=== PATIENT | female | born 1960 | race Caucasian/White ===

== ENCOUNTER 2019-02-03 09:26 | Inpatient (IN) | payer OTHER ==
[~2019-02-03] VITALS: Ht 167.6 cm; Wt 52.1 kg
[~2019-02-03 09:26] MED LIST: ASPI81EC PO; ATOR80 PO; DIPH50 PO; DULO30 PO; INSLI100I SC; INSULANI; INSULANI SC; LEVSOD150; LEVSOD150 PO; LOSA50 PO; METO5A; METO5A PO; MIRT15 PO; RANI150 PO; SERT100; ZOLP10 PO
[2019-02-03 09:45] LABS: Calcium, Ionized (POC) 1.32 mmol/L (1.10-1.46); Chloride (POC) 92 mmol/L (98-108); Creatinine (POC) 0.8 mg/dL (0.6-1.0); Glucose (ISTAT POC) >700 mg/dL (70-99); Hemoglobin (POC) 10.9 g/dL (12.0-16.0); Sodium (POC) 128 mmol/L (135-148); Total CO2 (POC) 11 mmol/L (21-32)
[2019-02-03 09:54] LABS: BASOPHILS ABSOLUTE AUTO 0.06 K/mm3 (0.00-0.23); BASOPHILS PERCENT AUTO 0 % (0-2); EOSINOPHILS ABSOLUTE AUTO 0.01 K/mm3 (0.00-0.68); EOSINOPHILS PERCENT AUTO 0 % (0-6); Hematocrit 32.8 % (33.0-51.0); IMMATURE GRAN ABSOLUTE AUTO 0.68 K/mm3 (0.00-0.10); IMMATURE GRAN PERCENT AUTO 4 % (0-1); LYMPHOCYTES ABSOLUTE AUTO 3.75 K/mm3 (0.84-5.20); LYMPHOCYTES PERCENT AUTO 20 % (21-46); MONOCYTES ABSOLUTE AUTO 0.58 K/mm3 (0.16-1.47); MONOCYTES PERCENT AUTO 3 % (4-13); Mean Corpuscular HGB 32.9 pg (26.0-34.0); Mean Corpuscular HGB Conc 30.5 g/dL (31.5-36.5); Mean Corpuscular Volume 108 fL (80-100); Mean Platelet Volume 10.1 fL (9.1-12.4); NEUTROPHILS PERCENT AUTO 72 % (41-73); NRBC ABSOLUTE 0.03 K/mm3 (0.00-0.02); NRBC Auto 0.2 /100 WBC (0.0-0.2); Platelet Count 240 K/mm3 (150-400); RDW Standard Deviation 51.8 fL (35.1-46.3); Red Blood Cell Count 3.04 M/mm3 (3.80-5.20); White Blood Cell Count 18.38 K/mm3 (4.00-11.30)
[2019-02-03 10:01] LABS: PO2 Arterial 209 mmHg (80-100); pH Blood Arterial 6.91 (7.35-7.45)
[2019-02-03 10:36] LABS: Albumin, Blood 3.4 g/dL (3.4-5.0); Albumin/Globulin Ratio 1.1 (0.8-1.8); Bilirubin, Total 0.4 mg/dL (0.1-1.0); Bun/Creatinine Ratio 25.1 (12.0-20.0); Calcium, Blood 10.5 mg/dL (8.5-10.1); Creatinine, Blood 2.83 mg/dL (0.40-1.00); Potassium, Blood 5.2 mmol/L (3.5-5.5); Total Protein, Blood 6.4 g/dL (6.4-8.2); Troponin I 0.552 ng/mL (0.000-0.040)
[2019-02-03 10:51] LABS: Beta-hydroxybutyrate 113.8 mg/dL (0.2-2.8)
--- NOTE | 2019-02-03 12:25 | NUR ---
ARRIVAL TO ICU PT. ARRIVES FROM CT AT 1205. PT INTUBATED WITH 6.5 ETT AND 22 AT THE TEETH. AC 24,TV 300, PEEP 10, 100%. PT NOT ON SEDATION UPON ARRIVAL. PT NON RESPONSIVE. PUPILS REACTIVE BUT SLOW. PT. CURRENTLY ON LEVOPHED GTT INFUSING THROUGH IO IV TO RIGHT REMY AT 20MCG/KG/MIN. INSULIN GTT AT 4.5 UNITS/HR. PT HAS OG IN PLACE WITH DARK BROWN SECRETIONS. PLACED TO LIS. PANDYA IN PLACE, TEMP PROBE REPORTS 91.0. WARM BLANKETS PROVIDE. BILAT WRIST RESTRAINTS PLACE. LAB AT BEDSIDE TO DRAW. DR. RAY AT BESIDE
--- NOTE | 2019-02-03 12:50 | NUR ---
DR. RAY AT [facility] FOR CENTRAL LINE PLACEMENT PER. ORDER ADDITIONAL LITER BOLUS STARTE AN INSULIN TITRATED UP TO 7UNITS/HR. VSS AT THIS TIME.
[2019-02-03 13:07] LABS: Bun/Creatinine Ratio 26.9 (12.0-20.0); Creatinine, Blood 2.42 mg/dL (0.40-1.00); Potassium, Blood 5.9 mmol/L (3.5-5.5)
[2019-02-03 13:08] LABS: Glucose, Blood 747 mg/dL (70-99)
[2019-02-03 13:09] LABS: Calcium, Blood 7.6 mg/dL (8.5-10.1)
--- NOTE | 2019-02-03 13:25 | NUR ---
VENT SETTINGS AC 24, TV 400, 70%, PEEP8
[2019-02-03 13:35] LABS: PCO2 Arterial 22.2 mmHg (35-45); PO2 Arterial 231 mmHg (80-100); pH Blood Arterial 7.06 (7.35-7.45)
--- NOTE | 2019-02-03 13:35 | NUR ---
CENTRAL LINE VERIFIED VIA XRAY ETT TO BE ADVANCED PER DR. TRINIDAD. RT NOTIFIE. SAP HANA DEVELOPER AT BEDSIDE
[2019-02-03] MEDS ORDERED: VENL150ER PO (13:57)
--- NOTE | 2019-02-03 13:58 | NUR ---
Echocardiogram completed.
[2019-02-03] MEDS ORDERED: ZOLP5 PO (13:59)
[2019-02-03] MEDS ORDERED: CARV6.25 PO (14:00)
--- NOTE | 2019-02-03 14:09 | NUR ---
BEARHUGGER PLACED FOR HYPOTHERMIA
[2019-02-03 14:10] LABS: Ethanol (Alcohol), Blood, Med <3 mg/dL
[2019-02-03 14:14] LABS: Glucose, Blood 700 mg/dL (70-99)
--- NOTE | 2019-02-03 14:24 | NUR ---
REINTUBATION 20MG ROCURONIUM AND 50MCG OF FENTANYL PULLED PER DR. ORDER. ADMIN AT 1430. PT REINTUBATED WITH 7.5 ETT; 24 AT THE LIP. POSITIVE COLOR CHANGE AND BILAT EQUAL BREATH SOUNDS WITH REINTUBATION. CHEST XRAY ORDERED FOR VERIFICATION
--- NOTE | 2019-02-03 14:37 | NUR ---
Initial Visit: Palliative Care Consult for Advance Care Planning and End of Life. Spoke with Dr Mckinnon and she reports the Pt's prognosis is poor and family would benefit visit from Palliative Care. Pt is resting in bed and is unresponsive and intubated. Met with family outside of room and engaged in therapeutic conversation. Pt's and son present. Answered questions about prognosis and offered emotional support. Listened as family expressed concerns. Offered book "Hard Choices for Bibb People" and accepted. Family report no other concerns at this time. Family report Pt would appreciate a elevator worker visit. No other concerns reported at this time. Plan: Will place Housekeeper/Laundry Assistant consult and will reamin available for theapeutic visits and symptom managment.
--- NOTE | 2019-02-03 15:27 | NUR ---
Present in ED when pt arrived. Met with Spouse, Brent, in consult room. He was rather withdrawn and guarded. He tells me they have been and , and remarried. It is a complicated relationship. Brent states Francesca has been hospitalized several times for DKA. "But things have never been this bad." This afternoon, I met with family at bedside in ICU. They are tearful and said very little. They allowed me to pray at bedside, but they did not participate. I suspect they are in emotional shock. I will remain available.
[2019-02-03 16:17] LABS: Base Excess Venous -20.2 mmol/L; Bicarbonate Venous 10.6 mmol/L (24.0-30.0); PCO2 Venous 24.3 mmHg (38-42); PO2 Venous 94.5 mmHg (38-42)
[2019-02-03 16:18] LABS: pH Blood Venous 7.15 (7.34-7.37)
--- NOTE | 2019-02-03 16:30 | NUR ---
LEVOPHED TITRATION LEVOPHED TITRATED DOWN; HOWEVER HR NOW IN THE 120S AND BP ELEVATED. PROPOFOL STARTED AT THIS TIME AT 25MCG/KG/MIN (7.7 ML/HR). AFTER STARTING PROPOFOL PT BECAME QUICKLY HYPOTENSIVE. PROPOFOL PLACED ON STAND BY AND LEVOPHED TITRATED BACK UP WITH BP RETAKING Q2 MIN. DR. CORY WOLFE.
[2019-02-03 16:47] LABS: Glucose, Blood 703 mg/dL (70-99)
[2019-02-03 16:51] LABS: U Amphetamine Screen Not Detected; U Barbituate Screen DETECTED; U Benzodiazapine Screen Not Detected; U Buprenorphine Screen Not Detected; U Cannabinoids Screen Not Detected; U Cocaine Screen Not Detected; U Methadone Screen Not Detected; U Methamphetamine Screen Not Detected; U Opiates Screen Not Detected; U Oxycodone Screen Not Detected; U Phencyclidine Screen Not Detected; U Propoxyphene Screen Not Detected
--- NOTE | 2019-02-03 17:22 | NUR ---
CALL TO DR. RAY REGARDING SUSTAINED HYPOTENSION LEVOPHED CURRENTLY AT 25MCG/KG/MIN, VASOPRESSIN INFUSING AT 0.04U/HR. PT CONTINUES WITH SYSTOLIC IN THE 50S. MANUAL BP DONE TO VERIFY. PER DR. RAY GIVE ADDITIONAL 1L BOLUS AT THIS TIME. FAMILY REMAINS AT BEDSIDE AND IS UPDATED ON CONDITION
[2019-02-03 17:24] LABS: Bun/Creatinine Ratio 27.1 (12.0-20.0); Calcium, Blood 7.2 mg/dL (8.5-10.1); Creatinine, Blood 2.4 mg/dL (0.40-1.00); Potassium, Blood 4.4 mmol/L (3.5-5.5)
[2019-02-03 18:14] LABS: Magnesium, Blood 1.8 mg/dL (1.6-2.4)
[2019-02-03 18:17] LABS: Albumin, Blood 2.4 g/dL (3.4-5.0); Bilirubin, Total 0.4 mg/dL (0.1-1.0); Calcium, Blood 6.9 mg/dL (8.5-10.1); Creatinine, Blood 2.42 mg/dL (0.40-1.00); Globulin, Blood 2.3 g/dL (2.2-4.0); Phosphorus, Blood 2.3 mg/dL (2.5-4.9); Potassium, Blood 4.3 mmol/L (3.5-5.5); Total Protein, Blood 4.7 g/dL (6.4-8.2)
[2019-02-03 18:18] LABS: Glucose, Blood 682 mg/dL (70-99)
[2019-02-03 18:41] LABS: Source, Urine Catheter
--- NOTE | 2019-02-03 18:41 | NUR ---
DOUBLE STRENGTH LEVOPHED STARTED TITRATED UP TO 20MCG/KG/MIN AT THIS TIME WITH AN ADDITIONAL 1L FLUID BOLUS. THIS IS 7L NS TOTAL SINCE ARRIVAL TO THE HOSPTIAL. SPOKE WITH DR. JASSO FOR CONSULT ON PT.
[2019-02-03 18:44] LABS: Bilirubin, Urine Neg (Neg); Blood, Urine 5+ (Neg); Glucose Qualitative, Urine 4+ (Neg); Ketones, Urine 3+ (Neg); Leukocyte Esterase, Urine Neg (Neg); Nitrite, Urine Neg (Neg); Protein, Urine 3+ (Neg); Urobilinogen, Urine NORM (Normal)
[2019-02-03 18:49] LABS: Appearance, Urine Hazy (Clear); Color, Urine Yellow (P-Yellow)
--- NOTE | 2019-02-03 18:49 | NUR ---
SHIFT SUMMARY PT. REMAINS INTUBATED WITH NO SEDATION. CURRENT VENT SETTINGS OF AC 24, TV 400, 40%, PEEP8. PT. REMAINS HYPOTENSIVE WITH AN ADDITIONAL LITER BOLUS (7TH) INFUSING AT THIS TIME, ALONG WITH DOUBLE STRENGTH LEVOPHED AT 20MCG/KG/MIN, VASOPRESSIN 0.04UNITS/MIN. ORDERS FOR NEOSYNEPHRINE IF NEEDED FOR BP AFTER THIS FLUID BOLUS. FAMILY REMAINS AT BEDSIDE. PT. WAS USING BEARHUGGER TODAY FOR HYPOTHERMIA HOWEVER WAS REMOVED WHEN TEMP WAS 97.1 AND TEMP IS NOW 98.[address]YA TEMP PROBE[address] JASSO IN TO SEE PT. REPORT TO ONCOMING RN.
[2019-02-03 18:51] LABS: Bacteria Mod /hpf; Squamous Epithelial Cells Not Seen /hpf (Few)
[2019-02-03 18:52] LABS: Amorphous Light (0-Heavy); Hyaline Casts 0-2 /lpf (0-2)
[2019-02-03 19:29] LABS: Glucose, Blood 663 mg/dL (70-99)
--- NOTE | 2019-02-03 20:05 | NUR ---
ASSUMED CARE PT INTUBATED ON VENT AC 24 VT 400 PEEP 8 FIO2 35%. PT NO LONGER ON PROPOFOL; WITH LEVOPHED AT 25MCG/MIN, VASOPRESSIN AT 0.04UNITS/MIN, AND INSULIN AT 12UNITS/HR. PT'S HEMODYNAMICS IS RELATIVELY STABLE WITH MAP AND SBP AT GOAL.
[2019-02-03 20:41] LABS: Base Excess Venous -14.3 mmol/L; Bicarbonate Venous 14.4 mmol/L (24.0-30.0); PCO2 Venous 25.7 mmHg (38-42); PO2 Venous 61.3 mmHg (38-42); pH Blood Venous 7.29 (7.34-7.37)
[2019-02-03 21:06] LABS: Glucose, Blood 572 mg/dL (70-99)
--- NOTE | 2019-02-03 21:45 | NUR ---
UPDATE TO DR RAY UPDATED MD ON CURRENT PRESSOR RATES, INSULIN RATE, BP AND MOST RECENT LABS. ORDERS TO MAINTAIN INSULIN GTT OVERNIGHT LONG BG >150, ALSO TO MAINTAIN MAG >2.0 AND K+ >4.0 WITH ORDERS TO SUPPLEMENT NEEDED BASED ON REPEAT LABS.
[2019-02-03 22:34] LABS: Albumin, Blood 2.6 g/dL (3.4-5.0); Bilirubin, Total 0.3 mg/dL (0.1-1.0); Bun/Creatinine Ratio 26.1 (12.0-20.0); Creatinine, Blood 2.26 mg/dL (0.40-1.00); Globulin, Blood 2.7 g/dL (2.2-4.0); Magnesium, Blood 1.7 mg/dL (1.6-2.4); Potassium, Blood 3.7 mmol/L (3.5-5.5); Total Protein, Blood 5.3 g/dL (6.4-8.2)
[2019-02-03 22:44] LABS: Troponin I 3.26 ng/mL (0.000-0.040)
[2019-02-04 04:15] LABS: Base Excess Venous -9.9 mmol/L; Bicarbonate Venous 17.1 mmol/L (24.0-30.0); PCO2 Venous 28.3 mmHg (38-42); PO2 Venous 44.8 mmHg (38-42); pH Blood Venous 7.35 (7.34-7.37)
[2019-02-04 04:42] LABS: Albumin, Blood 2.3 g/dL (3.4-5.0); Bilirubin, Total 0.2 mg/dL (0.1-1.0); Bun/Creatinine Ratio 28.7 (12.0-20.0); Calcium, Blood 6.7 mg/dL (8.5-10.1); Creatinine, Blood 2.02 mg/dL (0.40-1.00); Globulin, Blood 2.4 g/dL (2.2-4.0); Magnesium, Blood 1.6 mg/dL (1.6-2.4); Potassium, Blood 4.1 mmol/L (3.5-5.5); Total Protein, Blood 4.7 g/dL (6.4-8.2)
--- NOTE | 2019-02-04 05:46 | NUR ---
SHIFT SUMMARY PT REMAINS INTUBATED ON VENT AC 20, VT 400, PEEP 5, AND FIO2 35%. CURRENT GTTS: INSULIN 12UNITS/HR, LEVOPHED 12MCG/MIN, VASOPRESSIN 0.04UNITS/MIN, 0.9NS (8TH LITER SINCE ADMISSION), AND MAG SULFATE PB FOR NEXT HOUR. PT WARMED UP TO 97.2 F WITH BEAR HUGGER AFTER INABILITY TO MAINTAIN CORE TEMP. PATIENT IS MAKING ADEQUATE UOP AND HAS SCANT OUTPUT FROM OG TUBE. PT IS UNRESPONSIVE TO PAIN AND VERBAL STIMULI, AND NO PURPOSEFUL MOVEMENT IS NOTED; FOR THAT REASON RESTRAINTS WERE REMOVED. PT'S BROTHER, RAY, STAYED OVERNIGHT IN THE [facility].
--- NOTE | 2019-02-04 07:23 | NUR ---
ASSUMED CARE PT. REMAINS UNRESPONSIVE AND UNSEDATED ON THE VENT. CURRENT SETTINGS AC 20, 400TV, 35%, PEEP 5. PT. NOT RESPONSIVE TO PAINFUL STIMULI. NO REFLEX. NO GAG OR COUGH WITH DEEP SUCTION. PUPILS NON RESPONSIVE TO LIGHT AT THIS TIME. SCLERAL EDEMA NOTED. PT. SKIN WARM TO TOUCH, AFEBRILE. LS CLEAR T/O. PT. CONTINUES WITH TEMP MONITORING VIA PANDYA TEMP PROBE. PANDYA DRAINING TO GRAVITY. REMAINS HYPOTENSIVE ON DOUBLE STRENGTH AND LEVOPHED AT 12MCG/KG/MIN, AND VASOPRESSIN AT 0.04U/MIN. INSULIN GTT CONTINUES AT 12UNITS/HR. FAMILY UPDATED ON PT CONDITION THIS AM. NO RESTRAINTS IN PLACE.
[2019-02-04 10:09] LABS: Albumin, Blood 2.3 g/dL (3.4-5.0); Albumin/Globulin Ratio 0.9 (0.8-1.8); Bilirubin, Total 0.2 mg/dL (0.1-1.0); Bun/Creatinine Ratio 27.6 (12.0-20.0); Calcium, Blood 6.8 mg/dL (8.5-10.1); Creatinine, Blood 1.81 mg/dL (0.40-1.00); Globulin, Blood 2.5 g/dL (2.2-4.0); Phosphorus, Blood 2.1 mg/dL (2.5-4.9); Potassium, Blood 3.5 mmol/L (3.5-5.5); Total Protein, Blood 4.8 g/dL (6.4-8.2)
--- NOTE | 2019-02-04 10:10 | NUR ---
PROVIDER IN TO ASSESS PT.
--- NOTE | 2019-02-04 10:47 | NUR ---
DR. RAY AT BEDSIDE TO DO CALORIC REFLEX TEST PT. HAD ABSENT REFLEX. AWAITING FAX FROM DONOR BANK REGARDING APEA TEST FOR PROTOCOL.
[2019-02-04 11:49] LABS: PCO2 Arterial 23.6 mmHg (35-45); PO2 Arterial 102 mmHg (80-100); pH Blood Arterial 7.41 (7.35-7.45)
[2019-02-04 13:00] LABS: PCO2 Arterial 33.4 mmHg (35-45); PO2 Arterial 87.4 mmHg (80-100)
[2019-02-04 14:04] LABS: PCO2 Arterial 44.9 mmHg (35-45); PO2 Arterial 83.9 mmHg (80-100)
[2019-02-04 14:29] LABS: PCO2 Arterial 67.1 mmHg (35-45); PO2 Arterial 192 mmHg (80-100)
[2019-02-04 14:30] LABS: pH Blood Arterial 7.07 (7.35-7.45)
--- NOTE | 2019-02-04 14:39 | NUR ---
APNEA TEST PREFORMED AT BEDSIDE BY DR. RAY. EXPLAINED THIS TEST TO FAMILY PRIOR TO TEST, WAITING IN THE ICU WAITING ROOM FOR TO DISCUSS RESULTS. INITIAL ABG RESULTS COMPLETED AT 1403. PT WAS PLACED ON 100% FIO2 FOR 10 MIN STARTING AT 1408. PT WAS THEN DISCONNECTED FROM VENT WITH 6L O2 APPLIED TO ETT FOR 6 MIN THEN ABG WAS REDRAWN. RESULTS FROM SECOND ABG AT 1425. DONOR LINE UPDATED, PER DR. RAY PT HAD POSITIVE APENA TEST. TO TALK WITH PT FAMILY REGARDING RESULTS. DONOR LINE TO TALK WITH PT FAMILY REGARDING ORGAN DONATION.
--- NOTE | 2019-02-04 15:06 | NUR ---
Pt's spouse, Brent, is tearful and guarded. He did not engage. Pt's sister and family friends at bedside. They spoke of their love for Francesca and expressed their sorrow. I facilitated prayer at sister/friends request. Brent and son did not participate. I will remain available.
--- NOTE | 2019-02-04 17:15 | NUR ---
INSULIN GTT OFF AT THIS TIME.
[2019-02-04 17:32] LABS: Albumin, Blood 2.1 g/dL (3.4-5.0); Albumin/Globulin Ratio 0.8 (0.8-1.8); Bilirubin, Direct 0.1 mg/dL (0.0-0.3); Bilirubin, Indirect 0.1 mg/dL (0.1-0.7); Bilirubin, Total 0.2 mg/dL (0.1-1.0); Bun/Creatinine Ratio 27.7 (12.0-20.0); Calcium, Blood 6.7 mg/dL (8.5-10.1); Creatinine, Blood 1.59 mg/dL (0.40-1.00); Globulin, Blood 2.7 g/dL (2.2-4.0); Magnesium, Blood 1.7 mg/dL (1.6-2.4); Phosphorus, Blood 2.7 mg/dL (2.5-4.9); Potassium, Blood 3.9 mmol/L (3.5-5.5); Total Protein, Blood 4.8 g/dL (6.4-8.2)
--- NOTE | 2019-02-04 17:50 | NUR ---
SHIFT SUMMARY PT. REMAINS INTUBATED. NON RESPONSIVE. APNEA TEST DONE TODAY WITH A POSITIVE OUTCOME AND ALL OTHER REFLEXES NEGATIVE RESPONSE. CONTACT ESTABLISHED WITH DONOR LINE AND PLANS FOR MEETING TOMORROW WITH PT IN THE AM; THE PT QUALIFIES FOR POSSIBLE LIVER DONATION. PT. REMAINS ON LEVOPHED AND VASOPRESSIN TITRATED T/O SHIFT FOR MAP >60. PT. INSULIN GTT OFF THIS SHIFT. COVERAGE WITH MED S/S Q4H ORDERED. PT CONTINUES TO BE AFEBRILE. PANDYA IN PLACE DRAINING TO GRAVITY. REPORT TO ONCOMING RN.
--- NOTE | 2019-02-04 19:24 | NUR ---
ASSUMED CARE PT IS INTUBATED ON VENT AC 14, PEEP 5, FIO2 35%, AND VT 400. CURRENT GTTS: LEVOPHED 8MCG/MIN, VASOPRESSIN 0.04UNITS/MIN, AND NORMAL SALINE TKO. PT HAS TWO PERIPHERAL (LEFT AC, AND RIGHT UPPER CHEST) CURRENTLY SALINE LOCKED, AND LEFT IJ CENTRAL LINE HAS OPEN PORT (BROWN) LUMEN THAT FLUSHES AND DRAWS.
[2019-02-05 04:39] LABS: BASOPHILS ABSOLUTE AUTO 0.02 K/mm3 (0.00-0.23); BASOPHILS PERCENT AUTO 0 % (0-2); LYMPHOCYTES ABSOLUTE AUTO 0.89 K/mm3 (0.84-5.20); LYMPHOCYTES PERCENT AUTO 13 % (21-46); MONOCYTES ABSOLUTE AUTO 0.24 K/mm3 (0.16-1.47); MONOCYTES PERCENT AUTO 4 % (4-13); Mean Corpuscular HGB 32.3 pg (26.0-34.0); Mean Corpuscular HGB Conc 33.3 g/dL (31.5-36.5); Mean Platelet Volume 9.1 fL (9.1-12.4); Platelet Count 107 K/mm3 (150-400); RDW Coefficient Variation 13.5 % (11.7-14.2); RDW Standard Deviation 48.6 fL (35.1-46.3); Red Blood Cell Count 2.79 M/mm3 (3.80-5.20); White Blood Cell Count 6.91 K/mm3 (4.00-11.30)
[2019-02-05 04:42] LABS: EOSINOPHILS ABSOLUTE AUTO 0.02 K/mm3 (0.00-0.68); EOSINOPHILS PERCENT AUTO 0 % (0-6); IMMATURE GRAN ABSOLUTE AUTO 0.09 K/mm3 (0.00-0.10); IMMATURE GRAN PERCENT AUTO 1 % (0-1); Mean Corpuscular Volume 97 fL (80-100); NEUTROPHILS ABSOLUTE AUTO 5.65 K/mm3 (1.96-9.15); NEUTROPHILS PERCENT AUTO 82 % (41-73)
[2019-02-05 04:55] LABS: Albumin, Blood 2.1 g/dL (3.4-5.0); Bun/Creatinine Ratio 28.4 (12.0-20.0); Calcium, Blood 7.1 mg/dL (8.5-10.1); Creatinine, Blood 1.34 mg/dL (0.40-1.00); Phosphorus, Blood 2.4 mg/dL (2.5-4.9); Potassium, Blood 3.8 mmol/L (3.5-5.5)
[2019-02-05 05:04] LABS: BAND PERCENT MAN 30 % (0-8); BASOPHILS PERCENT MAN 0 % (0-2); EOSINOPHILS ABSOLUTE MAN 0.06 K/mm3 (0.00-0.68); EOSINOPHILS PERCENT MAN 1 % (0-6); LYMPHOCYTES ABSOLUTE MAN 0.82 K/mm3 (0.84-5.20); LYMPHOCYTES PERCENT MAN 12 % (21-46); METAMYELOCYTE ABSOLUTE MAN 0.27 K/mm3 (0.00-0.00); METAMYELOCYTE PERCENT MAN 4 % (0-0); MONOCYTES PERCENT MAN 3 % (4-13); NEUTROPHILS ABSOLUTE MAN 5.52 K/mm3 (1.96-9.15); SEG NEUTROPHILS PERCENT MAN 50 % (41-73); TOTAL CELLS COUNTED 100
--- NOTE | 2019-02-05 05:29 | NUR ---
DR RAY CALL OUT TO DR RAY FOR AM LABS, K+ 3.7 AND PHOS 2.4. MESSAGE LEFT, WILL UPDATE CHART W/ CALL BACK DETAILS.
--- NOTE | 2019-02-05 06:17 | NUR ---
SHIFT SUMMARY PT REMAINS INTUBATED ON VENT AC 14, VT 400, PEEP 5, AND FIO2 30%. CURRENT GTTS: LEVOPHED 1MCG/MIN, VASOPRESSION, 0.04UNITS/MIN, AND NS TKO. NO SIGNIFICANT EVENTS OVERNIGHT. SEE PAPER CHART FOR LEVOPHED TITRATIONS. NO CALL BACK FROM DR. RAY REGARDING PHOSPHORUS AND POTASSIUM LEVELS - WILL PASS ON TO AM NURSE.
--- NOTE | 2019-02-05 08:00 | NUR ---
CARE ASSUMED CARE AND REPORT ASSUMED FROM ABRAM VILLALBA. PT INTUBATED WITH VENT AC 14, 400, PEEP 5, FIO2 40%. NO SEDATION AT THIS TIME. ABSENT REFLEXES. PUPILS FIXED AT 4MM WITH NO REACTION. OGT ATTACHED TO LIWS. ETT SECURED. NSR, HR 80S. MAP GREATER THAN 65; LEVOPHED GTT INFUSING AT 1 MCG AND VASOPRESSIN GTT INFUSING AT 0.04. SPOKE WITH TRANSPLANT TEAM; OK TO GIVE INSULIN, LOVENOX AND CONTINUE VASOPRESSIN GTT. WILL CONTINUE TO MONITOR.
[2019-02-05 08:23] LABS: Albumin/Globulin Ratio 0.8 (0.8-1.8); Bilirubin, Direct 0.1 mg/dL (0.0-0.3); Bilirubin, Indirect 0.2 mg/dL (0.1-0.7); Bilirubin, Total 0.3 mg/dL (0.1-1.0); Globulin, Blood 2.7 g/dL (2.2-4.0); Total Protein, Blood 4.8 g/dL (6.4-8.2)
--- NOTE | 2019-02-05 11:08 | NUR ---
REASSESSMENT ARTERIAL LINE INSERTED INTO R GROIN BY MD LOW. ART LINE TRANSDUCED AND WAVEFORM WNL. LABS OBTAINED AND GIVEN TO BUDGET CONTROLLER. PT REMAINS ON VENTILATOR AC 14, 500, PEEP 5, FIO2 30%. POTASSIUM PHOSPHATE REPLACEMENT INFUSING. VASOPRESSIN GTT REMAINS INFUSING AT 0.04 UNITS/MIN. LEVOPHED GTT OFF AT THIS TIME. NSR, HR 80S. FAMILY IN/OUT OF ROOM. WILL CONTINUE TO MONITOR.
[2019-02-05 12:42] LABS: Hematocrit 24.7 % (33.0-51.0); Hemoglobin 8.1 g/dL (11.5-16.0); Mean Corpuscular HGB 32.5 pg (26.0-34.0); Mean Corpuscular HGB Conc 32.8 g/dL (31.5-36.5); Mean Corpuscular Volume 99 fL (80-100); Mean Platelet Volume 9.5 fL (9.1-12.4); NRBC ABSOLUTE 0.02 K/mm3 (0.00-0.02); NRBC Auto 0.3 /100 WBC (0.0-0.2); Platelet Count 80 K/mm3 (150-400); RDW Coefficient Variation 13.8 % (11.7-14.2); RDW Standard Deviation 49.8 fL (35.1-46.3); Red Blood Cell Count 2.49 M/mm3 (3.80-5.20); White Blood Cell Count 6.73 K/mm3 (4.00-11.30)
[2019-02-05 12:57] LABS: International Normalized Ratio 1.06; Prothrombin Time Results 11.2 Sec (9.7-11.5)
[2019-02-05 13:03] LABS: Albumin, Blood 1.9 g/dL (3.4-5.0); Albumin/Globulin Ratio 0.7 (0.8-1.8); Bilirubin, Direct 0.1 mg/dL (0.0-0.3); Bilirubin, Indirect 0.4 mg/dL (0.1-0.7); Bilirubin, Total 0.5 mg/dL (0.1-1.0); Bun/Creatinine Ratio 28.3 (12.0-20.0); Creatinine, Blood 1.2 mg/dL (0.40-1.00); Globulin, Blood 2.6 g/dL (2.2-4.0); Magnesium, Blood 1.7 mg/dL (1.6-2.4); Phosphorus, Blood 3.9 mg/dL (2.5-4.9); Potassium, Blood 4.3 mmol/L (3.5-5.5); Total Protein, Blood 4.5 g/dL (6.4-8.2)
[2019-02-05 13:13] LABS: PCO2 Arterial 26.6 mmHg (35-45); PO2 Arterial 99.1 mmHg (80-100); pH Blood Arterial 7.35 (7.35-7.45)
--- NOTE | 2019-02-05 13:32 | NUR ---
LEVOTHYROXINE 20MCG IVP GIVEN FOLLOWED BY GTT AT 25CC/HR. 1/2NS STARTED AT 100CC/HR. SOLUMEDROL 1GM GIVEN IVPB. LEVOPHED IS ON HOLD, VASOPRESSIN IS INFUSING 0.04UNITS/MIN. PT'S SISTER CAME IN BRIE[place] FOR VISIT.
[2019-02-05 13:36] LABS: Source, Urine Catheter
[2019-02-05 13:37] LABS: BAND PERCENT MAN 9 % (0-8); BASOPHILS PERCENT MAN 0 % (0-2); EOSINOPHILS PERCENT MAN 0 % (0-6); LYMPHOCYTES ABSOLUTE MAN 0.87 K/mm3 (0.84-5.20); LYMPHOCYTES PERCENT MAN 13 % (21-46); MONOCYTES PERCENT MAN 3 % (4-13); NEUTROPHILS ABSOLUTE MAN 5.65 K/mm3 (1.96-9.15); SEG NEUTROPHILS PERCENT MAN 75 % (41-73); TOTAL CELLS COUNTED 100
--- NOTE | 2019-02-05 13:39 | NUR ---
EKG COMPLETED AND GIVEN TO JOSE ANTONIO RAMIREZ
--- NOTE | 2019-02-05 13:42 | NUR ---
Started care of pt. at 0630 till 1400 by registered nursing professor 02/05/19
--- NOTE | 2019-02-05 13:53 | NUR ---
BRONCHOSCOPE BRONCHOSCOPE PERORMED BY MD NEDITA. BRADY FROM TRANSPLANT TEAM, CALLED TO BEDSIDE.
[2019-02-05 13:56] LABS: Bilirubin, Urine Neg (Neg); Blood, Urine 5+ (Neg); Glucose Qualitative, Urine 4+ (Neg); Ketones, Urine 3+ (Neg); Leukocyte Esterase, Urine Neg (Neg); Nitrite, Urine Neg (Neg); Protein, Urine 2+ (Neg); Urobilinogen, Urine NORM (Normal)
--- NOTE | 2019-02-05 14:29 | NUR ---
Pt. is still on vent and the nurse in the room attending to the pt. ,Offered prayers and blesseder.
[2019-02-05 14:36] LABS: Appearance, Urine Clear (Clear); Color, Urine Yellow (P-Yellow)
[2019-02-05 14:37] LABS: Bacteria Few /hpf; Squamous Epithelial Cells Few /hpf (Few); White Blood Cells, Urine 0-2 /hpf (0-5)
--- NOTE | 2019-02-05 18:28 | NUR ---
spoke with transplant nurse early this morning about supporitve care for family strategies.
[2019-02-05 18:37] LABS: Hematocrit 23.8 % (33.0-51.0); Mean Corpuscular HGB 32.4 pg (26.0-34.0); Mean Corpuscular HGB Conc 33.6 g/dL (31.5-36.5); Mean Platelet Volume 9.4 fL (9.1-12.4); Platelet Count 70 K/mm3 (150-400); RDW Coefficient Variation 13.7 % (11.7-14.2); Red Blood Cell Count 2.47 M/mm3 (3.80-5.20); White Blood Cell Count 5.17 K/mm3 (4.00-11.30)
--- NOTE | 2019-02-05 18:41 | NUR ---
SHIFT SUMMARY PT UNDER SUPERVISION OF TRANSPLANT AND DONOR TEAM. PT HAS REMAINED ON VENTILATOR AC 14, 500, PEEP INCREASED TO 8 AND FIO2 INCREASED TO 40%. PT DECLARED BRAIN YESTERDAY, THEREFORE NO NEURO RESPONSE. ART LINE INSERTED INTO R GROIN; PEDAL PULSES PRESENT AND PALPABLE. BRONCHOSCOPE PERFORMED BY MD LOW THIS AFTERNOON. FAMILY IN/OUT ROOM DURING SHIFT. PT'S TEMPERATURE FLUCTUATED DURING SHIFT; BEAR HUGGER APPLIED AND REMOVED FEW TIMES. REPEAT ECHO COMPLETED. PT TURNED TOLERATED. PANDYA REMAINS SECURED. PT GIVEN ALBUMIN AND LASIX 2 X DURING SHIFT TO DIURESIS. MIV CHANGED TO 1/2 NS AT 100 ML/HR; CONTINUES TO INFUSE. LEVOPHED GTT OFF EARLY IN SHIFT AND HAS REMAINED OFF. VASOPRESSIN GTT CONTINUES TO INFUSE AND HAS DONE SO ENTIRE SHIFT. PT HAS BEEN IN NSR, HR 80S. OCCASSIONALLY HAD EPISODES OF ELEVATED BP WITH SYSTOLIC HIGH 200; JEWELRY STORE MANAGER AWARE. WILL GIVE BEDSIDE, HANDOFF REPORT TO NOC RN.
[2019-02-05 18:50] LABS: International Normalized Ratio 1.05; Prothrombin Time Results 11.1 Sec (9.7-11.5)
[2019-02-05 19:05] LABS: Albumin, Blood 2.7 g/dL (3.4-5.0); Albumin/Globulin Ratio 0.9 (0.8-1.8); Bilirubin, Direct 0.2 mg/dL (0.0-0.3); Bilirubin, Indirect 0.5 mg/dL (0.1-0.7); Bilirubin, Total 0.7 mg/dL (0.1-1.0); Calcium, Blood 7.6 mg/dL (8.5-10.1); Creatine Kinase MB 22.5 ng/mL (0.0-3.6); Creatinine, Blood 1.11 mg/dL (0.40-1.00); Magnesium, Blood 1.5 mg/dL (1.6-2.4); Phosphorus, Blood 2.4 mg/dL (2.5-4.9); Potassium, Blood 3.2 mmol/L (3.5-5.5); Total Protein, Blood 5.7 g/dL (6.4-8.2)
[2019-02-05 19:08] LABS: Mean Corpuscular Volume 96 fL (80-100)
[2019-02-05 19:23] LABS: Creatine Kinase MB Index 1.3 (0.0-4.0); Troponin I 2.52 ng/mL (0.000-0.040)
--- NOTE | 2019-02-05 20:05 | NUR ---
ASSUMED CARE PT IS INTUBATED ON VENT AC 14, VT 400, PEEP 5, AND FIO2 40%. CURRENT GTTS: LEVOTHYROXINE AT 250MCG/HR, VASOPRESIN 0.04UNITS/MIN, 1/2NS 100ML/HR, AND 0.9NS TKO. PLAN TO UPDATE TRANSPLANT COORINATOR JOSE ANTONIO ON LABS AND BLOOD GLUCOSE.
[2019-02-05 20:56] LABS: BAND PERCENT MAN 18 % (0-8); BASOPHILS PERCENT MAN 0 % (0-2); EOSINOPHILS PERCENT MAN 0 % (0-6); LYMPHOCYTES ABSOLUTE MAN 0.41 K/mm3 (0.84-5.20); LYMPHOCYTES PERCENT MAN 8 % (21-46); METAMYELOCYTE ABSOLUTE MAN 0.05 K/mm3 (0.00-0.00); METAMYELOCYTE PERCENT MAN 1 % (0-0); MONOCYTES PERCENT MAN 4 % (4-13); NEUTROPHILS ABSOLUTE MAN 4.49 K/mm3 (1.96-9.15); SEG NEUTROPHILS PERCENT MAN 69 % (41-73); TOTAL CELLS COUNTED 100
[2019-02-05 22:01] LABS: PCO2 Arterial 35.2 mmHg (35-45); PO2 Arterial 421 mmHg (80-100)
--- NOTE | 2019-02-05 22:45 | NUR ---
TO CT PT TO CT WITH MULTIPLE STAFF MEMBERS INCLUDING RT, ON MONITOR AND TRANSPORT VENT.
--- NOTE | 2019-02-05 23:10 | NUR ---
RETURN FROM CT RETURN FROM [facility] INCIDENT.
[2019-02-06 00:28] LABS: Hemoglobin 7.8 g/dL (11.5-16.0); Mean Corpuscular HGB 32.5 pg (26.0-34.0); Mean Corpuscular HGB Conc 33.9 g/dL (31.5-36.5); Mean Corpuscular Volume 96 fL (80-100); Mean Platelet Volume 9.3 fL (9.1-12.4); Platelet Count 66 K/mm3 (150-400); RDW Coefficient Variation 13.6 % (11.7-14.2); RDW Standard Deviation 48.4 fL (35.1-46.3); White Blood Cell Count 5.75 K/mm3 (4.00-11.30)
[2019-02-06 00:30] LABS: Source, Urine Catheter
[2019-02-06 00:41] LABS: Bilirubin, Urine Neg (Neg); Blood, Urine 4+ (Neg); Glucose Qualitative, Urine 3+ (Neg); Ketones, Urine Neg (Neg); Leukocyte Esterase, Urine Neg (Neg); Nitrite, Urine Neg (Neg); Protein, Urine Neg (Neg); Specific Gravity, Urine 1.005 (1.003-1.022); Urobilinogen, Urine NORM (Normal); pH, Urine 6.5 (5.0-8.0)
[2019-02-06 00:43] LABS: Appearance, Urine Clear (Clear); Color, Urine Pale Yellow (P-Yellow)
[2019-02-06 00:46] LABS: BAND PERCENT MAN 23 % (0-8); BASOPHILS PERCENT MAN 0 % (0-2); EOSINOPHILS PERCENT MAN 0 % (0-6); LYMPHOCYTES ABSOLUTE MAN 0.51 K/mm3 (0.84-5.20); LYMPHOCYTES PERCENT MAN 9 % (21-46); METAMYELOCYTE ABSOLUTE MAN 0.05 K/mm3 (0.00-0.00); METAMYELOCYTE PERCENT MAN 1 % (0-0); MONOCYTES ABSOLUTE MAN 0.17 K/mm3 (0.16-1.47); MONOCYTES PERCENT MAN 3 % (4-13); MYELOCYTE ABSOLUTE MAN 0.05 K/mm3 (0.00-0.00); MYELOCYTE PERCENT MAN 1 % (0-0); NEUTROPHILS ABSOLUTE MAN 4.94 K/mm3 (1.96-9.15); Prothrombin Time Results 10.6 Sec (9.7-11.5); SEG NEUTROPHILS PERCENT MAN 63 % (41-73); TOTAL CELLS COUNTED 100
[2019-02-06 00:51] LABS: Bacteria Not Seen /hpf; Red Blood Cells, Urine 0-2 /hpf (0-2); Squamous Epithelial Cells Not Seen /hpf (Few); White Blood Cells, Urine Not Seen /hpf (0-5)
[2019-02-06 01:00] LABS: Albumin, Blood 3.5 g/dL (3.4-5.0); Albumin/Globulin Ratio 1.2 (0.8-1.8); Bilirubin, Direct 0.2 mg/dL (0.0-0.3); Bilirubin, Indirect 0.4 mg/dL (0.1-0.7); Bilirubin, Total 0.6 mg/dL (0.1-1.0); Creatinine, Blood 1.08 mg/dL (0.40-1.00); Globulin, Blood 2.8 g/dL (2.2-4.0); Magnesium, Blood 2.7 mg/dL (1.6-2.4); Phosphorus, Blood 2.2 mg/dL (2.5-4.9); Potassium, Blood 3.6 mmol/L (3.5-5.5); Total Protein, Blood 6.3 g/dL (6.4-8.2)
[2019-02-06 01:20] LABS: Creatine Kinase MB Index 0.9 (0.0-4.0); Troponin I 1.97 ng/mL (0.000-0.040)
[2019-02-06 06:02] LABS: Hemoglobin 9.5 g/dL (11.5-16.0); Mean Corpuscular HGB 32.4 pg (26.0-34.0); Mean Corpuscular HGB Conc 35.2 g/dL (31.5-36.5); Mean Platelet Volume 9.6 fL (9.1-12.4); NRBC ABSOLUTE 0.02 K/mm3 (0.00-0.02); NRBC Auto 0.3 /100 WBC (0.0-0.2); Platelet Count 61 K/mm3 (150-400); RDW Coefficient Variation 14.2 % (11.7-14.2); RDW Standard Deviation 48.2 fL (35.1-46.3); Red Blood Cell Count 2.93 M/mm3 (3.80-5.20); White Blood Cell Count 7.94 K/mm3 (4.00-11.30)
[2019-02-06 06:04] LABS: Mean Corpuscular Volume 92 fL (80-100)
[2019-02-06 06:20] LABS: International Normalized Ratio 1.01; Prothrombin Time Results 10.7 Sec (9.7-11.5)
[2019-02-06 06:24] LABS: Alanine Aminotransfer (ALT/SGP 139 U/L (12-78); Albumin, Blood 3.2 g/dL (3.4-5.0); Alk Phos 176 U/L (50-136); Anion Gap 12 mmol/L (6-16); Bilirubin, Direct 0.4 mg/dL (0.0-0.3); Bilirubin, Indirect 0.6 mg/dL (0.1-0.7); Blood Urea Nitrogen 24 mg/dL (8-24); Bun/Creatinine Ratio 25.1 (12.0-20.0); CO2, Blood 24 mmol/L (21-32); Calcium, Blood 7.7 mg/dL (8.5-10.1); Chloride, Blood 105 mmol/L (98-108); Creatinine, Blood 0.96 mg/dL (0.40-1.00); Globulin, Blood 3.2 g/dL (2.2-4.0); Glomerular Filtration Rate >60 (60-); Glucose, Blood 123 mg/dL (70-99); Magnesium, Blood 2.1 mg/dL (1.6-2.4); Phosphorus, Blood 2.9 mg/dL (2.5-4.9); Potassium, Blood 2.9 mmol/L (3.5-5.5); Sodium, Blood 141 mmol/L (136-145); Total Protein, Blood 6.4 g/dL (6.4-8.2)
[2019-02-06 06:33] LABS: Aspartate Aminotrans (AST/SGOT 1517 U/L (12-37)
[2019-02-06 06:42] LABS: PCO2 Arterial 35.2 mmHg (35-45); PO2 Arterial 405 mmHg (80-100); pH Blood Arterial 7.48 (7.35-7.45)
[2019-02-06 06:43] LABS: BAND PERCENT MAN 7 % (0-8); BASOPHILS PERCENT MAN 0 % (0-2); LYMPHOCYTES % ATYPICAL MANUAL 1 % (0-0); LYMPHOCYTES ABSOLUTE MAN 0.63 K/mm3 (0.84-5.20); LYMPHOCYTES PERCENT MAN 7 % (21-46); METAMYELOCYTE ABSOLUTE MAN 0.15 K/mm3 (0.00-0.00); METAMYELOCYTE PERCENT MAN 2 % (0-0); MONOCYTES ABSOLUTE MAN 0.15 K/mm3 (0.16-1.47); MONOCYTES PERCENT MAN 2 % (4-13); NEUTROPHILS ABSOLUTE MAN 6.98 K/mm3 (1.96-9.15); SEG NEUTROPHILS PERCENT MAN 81 % (41-73); TOTAL CELLS COUNTED 100
--- NOTE | 2019-02-06 07:22 | NUR ---
SHIFT SUMMARY SEE ICU FLOW SHEET FOR VITALS AND GTT TITRATIONS. PT REMAINS ON VENT. INSULIN GTT AT 5UNITS/HR, SYNTHROID GTT AT 25ML/HR, 1/2NS AT 100ML/HR, VASOPRESSIN AT 0.04UNITS/HR AND NS TKO. PT HAD 1 UNIT PRBC'S, MULTIPLE ELECTROLYTES REPLACED PER TRANSPLANT TEAM. PLAN TO UPDATE AM RN ON NEED TO CONTACT SEPTIC PUMP TRUCK DRIVER FOR ANGIO FOR POSSIBLE HEART PLACEMENT.
--- NOTE | 2019-02-06 09:45 | NUR ---
CARE ASSUMED CARE AND REPORT ASSUMED FROM BERNIE VILLALBA. PT REMAINS INTUBATED ON VENT AC 14, 400, PEEP 8, FIO2 40%. LUNG SOUNDS CLEAR. PUPILS REMAIN FIXED. VASOPRESSIN GTT REMAINS INFUSING. POTASSIUM REPLACEMENT INFUSING. MIV 1/2 NS INFUSING AT 100 ML/HR. SIDE TRIMMER REMAINS INVOLVED IN CARE PLAN. FAMILY IN/OUT OF ROOM. INSULIN GTT INFUSING AND ADJUSTED NEEDED. WILL CONTINUE TO MONITOR.
[2019-02-06 12:24] LABS: Hematocrit 28.2 % (33.0-51.0); Hemoglobin 10.1 g/dL (11.5-16.0); Mean Corpuscular HGB 32.5 pg (26.0-34.0); Mean Corpuscular HGB Conc 35.8 g/dL (31.5-36.5); Mean Corpuscular Volume 91 fL (80-100); Mean Platelet Volume 9.3 fL (9.1-12.4); NRBC ABSOLUTE 0.03 K/mm3 (0.00-0.02); NRBC Auto 0.3 /100 WBC (0.0-0.2); Platelet Count 69 K/mm3 (150-400); RDW Coefficient Variation 14.6 % (11.7-14.2); RDW Standard Deviation 48.7 fL (35.1-46.3); Red Blood Cell Count 3.11 M/mm3 (3.80-5.20); White Blood Cell Count 10.01 K/mm3 (4.00-11.30)
[2019-02-06 12:39] LABS: International Normalized Ratio 1.04
[2019-02-06 12:44] LABS: Alanine Aminotransfer (ALT/SGP 142 U/L (12-78); Albumin, Blood 3.4 g/dL (3.4-5.0); Albumin/Globulin Ratio 1.1 (0.8-1.8); Alk Phos 207 U/L (50-136); Anion Gap 13 mmol/L (6-16); Bilirubin, Direct 0.4 mg/dL (0.0-0.3); Bilirubin, Indirect 0.7 mg/dL (0.1-0.7); Bilirubin, Total 1.1 mg/dL (0.1-1.0); Blood Urea Nitrogen 22 mg/dL (8-24); Bun/Creatinine Ratio 24.1 (12.0-20.0); CO2, Blood 23 mmol/L (21-32); Calcium, Blood 8.4 mg/dL (8.5-10.1); Chloride, Blood 100 mmol/L (98-108); Creatinine, Blood 0.91 mg/dL (0.40-1.00); Globulin, Blood 3.2 g/dL (2.2-4.0); Glomerular Filtration Rate >60 (60-); Glucose, Blood 189 mg/dL (70-99); Magnesium, Blood 1.7 mg/dL (1.6-2.4); Phosphorus, Blood 2.5 mg/dL (2.5-4.9); Potassium, Blood 3.4 mmol/L (3.5-5.5); Sodium, Blood 136 mmol/L (136-145); Total Protein, Blood 6.6 g/dL (6.4-8.2)
[2019-02-06 12:45] LABS: Source, Urine Catheter
[2019-02-06 12:49] LABS: Aspartate Aminotrans (AST/SGOT 1780 U/L (12-37)
--- NOTE | 2019-02-06 12:50 | NUR ---
REASSESSMENT PT REMAINS ON LIFE SUPPORT WITH CARE BEING MANAGED BY TRANSPLANT TEAM. NO CHANGE IN VENT SETTINGS. INSULIN GTT REMAINS INFUSING; TITRATING NEEDED. BEAR HUGGER ON PT TO INCREASE TEMPERATURE. VASOPRESSIN GTT INFUSING AT 0.04 UNITS/MIN. MIV 1/2 NS INFUSING AT 100 ML/HR. LEVOTHYROXINE GTT INFUSING AT 25 ML/HR. POTASSIUM REPLACEMENT CONTINUES TO INFUSE. FAMILY IN/OUT OF ROOM. PT WENT TO GLOBE CLEANER FOR HEART CATH FROM [id number]. SHEATS REMAIN INTACT IN L GROIN; SECURED. R GROIN FEMORAL LINE REMAINS INTACT IN L GROIN. WILL CONTINUE TO MONITOR.
[2019-02-06 12:51] LABS: Bilirubin, Urine Neg (Neg); Blood, Urine 4+ (Neg); Glucose Qualitative, Urine 2+ (Neg); Ketones, Urine Neg (Neg); Leukocyte Esterase, Urine Neg (Neg); Nitrite, Urine Neg (Neg); Protein, Urine 2+ (Neg); Urobilinogen, Urine NORM (Normal)
[2019-02-06 13:02] LABS: Appearance, Urine Clear (Clear); Color, Urine Pale Yellow (P-Yellow)
[2019-02-06 13:10] LABS: Bacteria Not Seen /hpf; Hyaline Casts 0-2 /lpf (0-2); Squamous Epithelial Cells Not Seen /hpf (Few); White Blood Cells, Urine Not Seen /hpf (0-5)
[2019-02-06 13:19] LABS: BAND PERCENT MAN 9 % (0-8); BASOPHILS PERCENT MAN 0 % (0-2); EOSINOPHILS PERCENT MAN 0 % (0-6); LYMPHOCYTES PERCENT MAN 4 % (21-46); METAMYELOCYTE PERCENT MAN 1 % (0-0); MONOCYTES PERCENT MAN 5 % (4-13); SEG NEUTROPHILS PERCENT MAN 81 % (41-73); TOTAL CELLS COUNTED 100
--- NOTE | 2019-02-06 13:25 | NUR ---
Pt. is lying in bed resting and her last days of her jpourney , offered prayers for her .
--- NOTE | 2019-02-06 14:11 | NUR ---
02/06/19 1410 Marla Hurt THIS IS A HARVEST CASE. I PUT DR. POLLACK THE SURGEON BECAUSE NO ONE FROM THE HARVEST TEAM IS IN OUR SYSTEM. HE JUST A PLACE [place]
[2019-02-06 17:06] LABS: PCO2 Arterial 34.8 mmHg (35-45); PO2 Arterial 474 mmHg (80-100); pH Blood Arterial 7.49 (7.35-7.45)
[2019-02-06 17:47] LABS: PCO2 Arterial 35.1 mmHg (35-45); PO2 Arterial 148 mmHg (80-100); pH Blood Arterial 7.49 (7.35-7.45)
[2019-02-06 18:18] LABS: Hematocrit 25.6 % (33.0-51.0); Mean Corpuscular HGB 32.3 pg (26.0-34.0); Mean Corpuscular HGB Conc 35.2 g/dL (31.5-36.5); Mean Corpuscular Volume 92 fL (80-100); Mean Platelet Volume 9.6 fL (9.1-12.4); NRBC ABSOLUTE 0.04 K/mm3 (0.00-0.02); NRBC Auto 0.4 /100 WBC (0.0-0.2); Platelet Count 60 K/mm3 (150-400); RDW Coefficient Variation 14.6 % (11.7-14.2); RDW Standard Deviation 49.4 fL (35.1-46.3); Red Blood Cell Count 2.79 M/mm3 (3.80-5.20); White Blood Cell Count 11.31 K/mm3 (4.00-11.30)
[2019-02-06 18:36] LABS: Alanine Aminotransfer (ALT/SGP 117 U/L (12-78); Albumin, Blood 2.7 g/dL (3.4-5.0); Albumin/Globulin Ratio 0.8 (0.8-1.8); Alk Phos 192 U/L (50-136); Anion Gap 10 mmol/L (6-16); Bilirubin, Direct 0.3 mg/dL (0.0-0.3); Bilirubin, Indirect 0.3 mg/dL (0.1-0.7); Bilirubin, Total 0.6 mg/dL (0.1-1.0); Blood Urea Nitrogen 23 mg/dL (8-24); Bun/Creatinine Ratio 25.8 (12.0-20.0); CO2, Blood 26 mmol/L (21-32); Calcium, Blood 7.8 mg/dL (8.5-10.1); Chloride, Blood 102 mmol/L (98-108); Creatine Kinase MB 4.1 ng/mL (0.0-3.6); Creatinine, Blood 0.89 mg/dL (0.40-1.00); Globulin, Blood 3.3 g/dL (2.2-4.0); Glomerular Filtration Rate >60 (60-); Glucose, Blood 165 mg/dL (70-99); Magnesium, Blood 1.6 mg/dL (1.6-2.4); Phosphorus, Blood 2.2 mg/dL (2.5-4.9); Potassium, Blood 3.5 mmol/L (3.5-5.5); Sodium, Blood 138 mmol/L (136-145)
[2019-02-06 18:44] LABS: Aspartate Aminotrans (AST/SGOT 1378 U/L (12-37); CPK Creatine Kinase 1318 U/L (26-193); Creatine Kinase MB Index 0.3 (0.0-4.0)
[2019-02-06 18:49] LABS: International Normalized Ratio 1.03; Prothrombin Time Results 10.9 Sec (9.7-11.5)
[2019-02-06 18:56] LABS: BASOPHILS PERCENT MAN 0 % (0-2); EOSINOPHILS PERCENT MAN 0 % (0-6); LYMPHOCYTES ABSOLUTE MAN 0.56 K/mm3 (0.84-5.20); LYMPHOCYTES PERCENT MAN 5 % (21-46); MONOCYTES ABSOLUTE MAN 0.67 K/mm3 (0.16-1.47); MONOCYTES PERCENT MAN 6 % (4-13); NEUTROPHILS ABSOLUTE MAN 10.06 K/mm3 (1.96-9.15); SEG NEUTROPHILS PERCENT MAN 89 % (41-73); TOTAL CELLS COUNTED 100
--- NOTE | 2019-02-06 19:15 | NUR ---
ASSUMING CARE OF PT AT THIS TIME. PT REPORT RECEIVED AT BEDSIDE WITH OFFGOING NURSE, SUMAYA VILLALBA. PT LAYING IN BED, INTUBATED. PT'S FAMILY AT BEDSIDE. VS STABLE - SEE VS FS. PT DOES NOT APPEAR TO BE IN DISTRESS AT THIS TIME. WILL REVIEW PLAN OF CARE.
--- NOTE | 2019-02-06 19:20 | NUR ---
SHIFT SUMMARY PT REMAINED ON VENTILATOR ENTIRE SHIFT. CARE AND ORDERS MANAGED BY PNBT TRANSPLANT TEAM. PT TAKEN TO HEALTH CONSULTANT IN AM. FAMILY IN/OUT DURING SHIFT. OUTPUT FROM CATHETER WAS 4000 ML. INSULIN GTT INFUSED AND TITRATED TO MAINTAIN BLOOD SUGAR BETWEEN 150-200. VASOPRESSIN GTT INFUSED ENTIRE SHIFT. MIV 1/2 NS INFUSED AT 100 ML/HR ENTIRE SHIFT. POTASSIUM REPLACEMENT GIVEN. LABS CHECKED ORDERED. CXR X 2 OBTAINED DURING SHIFT PER TEAM REQUEST. SINCE ARRIVING FROM HEALTH CONSULTANT, PT HAS REMAINED IN FLAT POSITION. L GROIN SHEATHS SECURED AND PEDAL PULSES PRESENT. R FEM ART LINE REMAINED SECURED ENTIRE SHIFT; DRAWS BACK SMOOTHLY AND MONITOR WAVE FORM WNL. PT HAD 1 SMEAR OF BOWEL MOVEMENT. VECURONIUM 10 MG IVP GIVEN X 1 FOR REFLEX CONTROL. BEDSIDE REPORT GIVEN TO WALDO VILLALBA.
--- NOTE | 2019-02-06 19:30 | NUR ---
ASSESSMENT PT UNRESPONSIVE, NO CORNEAL REFLEX, NO COUGHING AND GAGGING WITH DEEP SUCTION, DOES NOT OPEN EYES, NO RESPONSE TO PAINFUL STIMULI, OCC SPINAL REFLEX (JERKING MOVEMENT OF BLE'S). PUPILS 5 MM, EQUAL AND MIDLINE, NON REACTIVE TO LIGHT, NO MOVEMENT. TOÑO SENSATION. NO MOVEMENT OF EXTREMETIES. NO S/SX OF PAIN/DISCOMFORT NOTED. LUNGS CLEAR. VENT SETTINGS: AC 14, TV 400, PEEP 8, FIO2 40%. OXY SAT >95%. RR 14. SUCTION VIA ETT: SCANT AMOUNTS OF THIN CLEAR SECRETIONS. AFEBRILE. NSR. HR 90'S. ARTERIAL LINE R GROIN - NO HEMATOMA, NO BRUISING, SMALL AMOUNTS OF DRY BLOOD TO DRESSING, OTHERWISE DRESSING C/D/I. CURRENT BP VIA ARTERIAL LINE 172/70 (MAP 107). VENOUS AND ARTERIAL SHEATH TO LEFT GROIN - NO HEMATOMA, NO BRUISING, SMALL AMOUNTS OF DRY BLOOD TO DRESSING. FAINT PULSES. EDEMA NOTED. PER REPORT - DIURSED THIS AM. SKIN WARM, PALE. VASOPRESSIN 0.04 UNITS/MIN. HYPOACTIVE BT X4 QUADRANTS. ABD SOFT. NO BM. OG TO LIS: SMALL AMOUNTS OF DARK GREEN SECRETIONS NOTED IN TUBING. F/C - CLEAR, YELLOW URINE NOTED. CL L IJ. 1/2 NS AT 100 ML/HR. NS TKO AT 10 ML/HR. INSULIN DRIP AT 5 UNITS/HR - WILL TITRATE TO EFFECT. MANAGEMENT OF PT CARE BY ORGAN DONATION TEAM. PER ELISABETH FROM ORGAN DONATION, VENOUS AND ARTERIAL SHEATH IN LEFT GROIN MAY STAY IN AT THIS TIME. PER ELISABETH, SURGERY PLANNED FOR 02/07/19 AT 1100.
--- NOTE | 2019-02-06 22:00 | NUR ---
ELISABETH FROM DONATION TEAM ELISABETH ORDERED ALBUMIN 25 MG, LASIX 40 MG, MAG SULFATE 2 GRAMS, ABG X2, AND AM CHEST XRAY. WAITING FOR VERIFICATION OF MEDICATIONS FROM PHARMACY AND WAITING FOR MEDICATIONS FROM PHARMACY AT THIS TIME. ELISABETH INSTRUCTED TO DECREASED PEEP TO 5 AT 2300, OBTAIN ABG AT 2330, THEN INCREASE FIO2 TO 100% AT 2330, OBTAIN ABG 0000, AND THEN DECREASE FIO2 40% AND INCREASED PEEP TO 8 AT 0000. RT ELIZABETH NOTIFIED OF VENT SETTING CHANGES AND ABG X2.
[2019-02-06 23:34] LABS: PCO2 Arterial 33.4 mmHg (35-45); PO2 Arterial 169 mmHg (80-100); pH Blood Arterial 7.49 (7.35-7.45)
[2019-02-07 00:06] LABS: PCO2 Arterial 33.4 mmHg (35-45); PO2 Arterial 472 mmHg (80-100); pH Blood Arterial 7.49 (7.35-7.45)
[2019-02-07 00:12] LABS: Source, Urine Catheter
[2019-02-07 00:20] LABS: Hemoglobin 7.9 g/dL (11.5-16.0); Mean Corpuscular HGB 31.9 pg (26.0-34.0); Mean Corpuscular HGB Conc 34.3 g/dL (31.5-36.5); Mean Corpuscular Volume 93 fL (80-100); Mean Platelet Volume 9.8 fL (9.1-12.4); NRBC ABSOLUTE 0.04 K/mm3 (0.00-0.02); NRBC Auto 0.4 /100 WBC (0.0-0.2); Platelet Count 55 K/mm3 (150-400); RDW Coefficient Variation 14.6 % (11.7-14.2); RDW Standard Deviation 49.6 fL (35.1-46.3); Red Blood Cell Count 2.48 M/mm3 (3.80-5.20); White Blood Cell Count 10.74 K/mm3 (4.00-11.30)
[2019-02-07 00:24] LABS: Bilirubin, Urine Neg (Neg); Blood, Urine 2+ (Neg); Glucose Qualitative, Urine Neg (Neg); Ketones, Urine 1+ (Neg); Leukocyte Esterase, Urine Neg (Neg); Nitrite, Urine Neg (Neg); Protein, Urine 1+ (Neg); Specific Gravity, Urine 1.005 (1.003-1.022); Urobilinogen, Urine NORM (Normal)
[2019-02-07 00:32] LABS: Appearance, Urine Clear (Clear); Color, Urine Pale Yellow (P-Yellow)
[2019-02-07 00:33] LABS: Amorphous Light (0-Heavy); Bacteria Rare /hpf; Red Blood Cells, Urine 0-2 /hpf (0-2); Squamous Epithelial Cells Rare /hpf (Few); White Blood Cells, Urine Rare /hpf (0-5)
[2019-02-07 00:36] LABS: International Normalized Ratio 1.02; Prothrombin Time Results 10.8 Sec (9.7-11.5)
[2019-02-07 00:50] LABS: Alanine Aminotransfer (ALT/SGP 98 U/L (12-78); Albumin, Blood 3.2 g/dL (3.4-5.0); Albumin/Globulin Ratio 1.1 (0.8-1.8); Alk Phos 199 U/L (50-136); Anion Gap 10 mmol/L (6-16); Bilirubin, Direct 0.3 mg/dL (0.0-0.3); Bilirubin, Indirect 0.3 mg/dL (0.1-0.7); Bilirubin, Total 0.6 mg/dL (0.1-1.0); Blood Urea Nitrogen 21 mg/dL (8-24); CO2, Blood 24 mmol/L (21-32); Calcium, Blood 7.8 mg/dL (8.5-10.1); Chloride, Blood 104 mmol/L (98-108); Creatinine, Blood 0.91 mg/dL (0.40-1.00); Globulin, Blood 2.9 g/dL (2.2-4.0); Glomerular Filtration Rate >60 (60-); Glucose, Blood 155 mg/dL (70-99); Magnesium, Blood 2.4 mg/dL (1.6-2.4); Phosphorus, Blood 1.8 mg/dL (2.5-4.9); Potassium, Blood 3.5 mmol/L (3.5-5.5); Sodium, Blood 138 mmol/L (136-145); Total Protein, Blood 6.1 g/dL (6.4-8.2)
[2019-02-07 00:58] LABS: Aspartate Aminotrans (AST/SGOT 1177 U/L (12-37)
[2019-02-07 01:02] LABS: BAND PERCENT MAN 19 % (0-8); BASOPHILS PERCENT MAN 0 % (0-2); EOSINOPHILS PERCENT MAN 0 % (0-6); LYMPHOCYTES ABSOLUTE MAN 0.32 K/mm3 (0.84-5.20); LYMPHOCYTES PERCENT MAN 3 % (21-46); MONOCYTES ABSOLUTE MAN 0.53 K/mm3 (0.16-1.47); MONOCYTES PERCENT MAN 5 % (4-13); NEUTROPHILS ABSOLUTE MAN 9.88 K/mm3 (1.96-9.15); SEG NEUTROPHILS PERCENT MAN 73 % (41-73); TOTAL CELLS COUNTED 100
--- NOTE | 2019-02-07 01:13 | NUR ---
PT CARE / DONATION TEACH VENT SETTINGS CHANGED TO AC 14, TV 400, PEEP 5, FIO2 40% AT 2300. ABG OBTAINED VIA ARTERIAL LINE AT 2330. ABG PROVIDED TO ELIZABETH, RT. AFTER OBTAINING 2330 ABG, FIO2 INCREASED TO 100%. ABG OBTAINED VIA ARTERIAL LINE AT 0000. ABG PROVIDED TO ELIZABETH, RT. AFTER OBTAINING 0000 ABG, VENT SETTINGS CHANGED BACK TO AC 14, TV 400, PEEP 8, FIO2 40%. 0000 LABS DRAWN. INFORMED ELISABETH FROM DONATION BANK OF LABS. ELISABETH ORDERED 1 UNIT PRBC AND POTASSIUM PHOS 30 MM. WAITING FOR BLOOD FROM BLOOD BANK AT THIS TIME AND POTASSIUM PHOS FROM PHARMACY. ELISABETH INSTRUCTED TO ADMINISTER LASIX AFTER BLOOD HAS BEEN TRANSFERRED.
--- NOTE | 2019-02-07 05:00 | NUR ---
ELISABETH FROM DONATION TEAM ELISABETH INSTRUCTED TO DECREASE PEEP TO 5 AT 0500, OBTAIN ABG AT 0530, THEN INCREASE FIO2 TO 100% AT 0530, OBTAIN SECOND ABG AT 0600, AND THEN DECREASE FIO2 TO 40% AND INCREASE PEEP TO 8 AT 0600. RT ELIZABETH NOTIFIED OF VENT SETTING CHANGES AND ABG X2.
[2019-02-07 05:36] LABS: PO2 Arterial 166 mmHg (80-100); pH Blood Arterial 7.48 (7.35-7.45)
--- NOTE | 2019-02-07 05:45 | NUR ---
SHIFT ASSESSMENT NO ACUTE CHANGES NOTED T/O SHIFT. FAMILY LEFT BEDSIDE THIS AM. MANAGEMENT OF PT CARE BY ORGAN DONATION TEAM. ELISABETH FROM ORGAN DONATION TEAM AT BEDSIDE T/O SHIFT. PT REMAINED UNRESPONSIVE, NO CORNEAL REFLEX, NO COUGHING ANG GAGGING WITH DEEP SUCTION, DOES NOT OPEN EYES, NO RESPONSE TO PAINFUL STIMULI, OCC SPINAL REFLEX (JERKING MOVEMENT OF BLE'S). VECURONIUM ADMINISTERED FOR SPINAL REFLEX. PUPILS 5 MM, EQUAL AND MIDLINE, NON REACTIVE TO LIGHT, NO MOVEMENT. TOÑO SENSATION. NO MOVEMENT OF EXTREMETIES. NO S/SX OF PAIN/DISCOMFORT. LUNGS CLEAR. CURRENT VENT SETTINGS: AC 14, TV 400, PEEP 8, FIO2 40%. VENT SETTINGS CHANGED TO AC 14, TV 400, PEEP 5, FIO2 40% AT 0500. ABG OBTAINED VIA ARTERIAL LINE AT 0530. ABG PROVIDED TO ELIZABETH RT. AFTER OBTAINING 0530 ABG, FIO2 INCREASED TO 100%. ABG OBTAIN VIA ARTERIAL LINE AT 0600. ABG PROVIDED TO ELIZABETH RT. AFTER OBTAINING 0600 ABG, VENT SETTINGS CHANGED BACK TO AC 14, TV 400, PEEP 8, FIO2 40%. 0600 LABS DRAWN. ELISABETH INSTRUCTED TO OBTAIN 0600 WHILE POTASSIUM PHOS 30 MM IVPB IS INFUSING. OXY SAT REMAINED >90%. RR 14. SUCTION VIA ETT: SCANT AMOUNTS OF THIN CLEAR SECRETIONS. AFEBRILE. NSR. HR 80'S TO 90'S. ARTERIAL LINE R GROIN - NO HEMATOMA, NO BRUISING, SMALL AMOUNTS OF DRY BLOOD TO DRESSING, OTHERWISE DRESSING C/D/I. BP OBTAINED VIA ARTERIAL LINE. BP STABLE - SEE VS FS. VENOUS AND ARTERIAL SHEATH TO LEFT GROIN - NO HEMATOMA, NO BRUISING, SMALL AMOUNTS OF DRY BLOOD TO DRESSING, OTHERWISE DRESSING C/D/I. FAINT PULSES. EDEMA NOTED. SKIN WARM, PALE. VASOPRESSIN 0.04 UNITS/MIN. LASIX AND ALBUMIN ADMINISTERED PER ORDER. HYPOACTIVE BT X4 QUADRANTS. ABD SOFT. BM X1. OG TO LIS: DARK GREEN SECRETIONS. F/C - CLEAR, YELLOW URINE NOTED. CL L IJ. 1/2 NS AT 100 ML/HR. NS TKO AT 10 ML/HR X2. INSULIN DRIP AT 8 UNITS/HR - CONT TO TITRATE TO EFFECT. SYNTHYROID AT 25 ML/HR. WAITING FOR AM LAB RESULTS AT THIS TIME. CHEST XRAY COMPLETED THIS AM. WILL CONT TO MONITOR PT AND WILL PROVIDE BEDSIDE REPORT TO ONCOMING NURSE THIS AM.
[2019-02-07 06:05] LABS: PO2 Arterial 483 mmHg (80-100); pH Blood Arterial 7.49 (7.35-7.45)
[2019-02-07 06:18] LABS: Hematocrit 26.9 % (33.0-51.0); Hemoglobin 9.4 g/dL (11.5-16.0); Mean Corpuscular HGB 31.4 pg (26.0-34.0); Mean Corpuscular HGB Conc 34.9 g/dL (31.5-36.5); Mean Platelet Volume 10.1 fL (9.1-12.4); NRBC ABSOLUTE 0.05 K/mm3 (0.00-0.02); NRBC Auto 0.4 /100 WBC (0.0-0.2); Platelet Count 52 K/mm3 (150-400); RDW Coefficient Variation 15.1 % (11.7-14.2); RDW Standard Deviation 49.3 fL (35.1-46.3); Red Blood Cell Count 2.99 M/mm3 (3.80-5.20); White Blood Cell Count 12.11 K/mm3 (4.00-11.30)
[2019-02-07 06:24] LABS: Mean Corpuscular Volume 90 fL (80-100)
[2019-02-07 06:38] LABS: International Normalized Ratio 1.01; Prothrombin Time Results 10.7 Sec (9.7-11.5)
[2019-02-07 06:42] LABS: Alanine Aminotransfer (ALT/SGP 97 U/L (12-78); Albumin/Globulin Ratio 0.9 (0.8-1.8); Alk Phos 233 U/L (50-136); Anion Gap 11 mmol/L (6-16); Bilirubin, Direct 0.5 mg/dL (0.0-0.3); Bilirubin, Indirect 0.7 mg/dL (0.1-0.7); Bilirubin, Total 1.2 mg/dL (0.1-1.0); Blood Urea Nitrogen 19 mg/dL (8-24); Bun/Creatinine Ratio 21.6 (12.0-20.0); CO2, Blood 26 mmol/L (21-32); Calcium, Blood 7.9 mg/dL (8.5-10.1); Chloride, Blood 98 mmol/L (98-108); Creatinine, Blood 0.88 mg/dL (0.40-1.00); Globulin, Blood 3.4 g/dL (2.2-4.0); Glomerular Filtration Rate >60 (60-); Glucose, Blood 182 mg/dL (70-99); Phosphorus, Blood 4.4 mg/dL (2.5-4.9); Potassium, Blood 2.9 mmol/L (3.5-5.5); Sodium, Blood 135 mmol/L (136-145); Total Protein, Blood 6.4 g/dL (6.4-8.2)
[2019-02-07 06:43] LABS: Aspartate Aminotrans (AST/SGOT 1182 U/L (12-37)
--- NOTE | 2019-02-07 06:46 | NUR ---
ELISABETH FROM DONATION TEAM / AM LABS ELISABETH REVIEWED AM LABS. ELISABETH ORDERED KCL 60 MEQ AT THIS TIME. WAITING FOR MEDICATION FROM PHARMACY AT THIS TIME.
[2019-02-07 07:20] LABS: BAND PERCENT MAN 15 % (0-8); BASOPHILS PERCENT MAN 0 % (0-2); EOSINOPHILS PERCENT MAN 0 % (0-6); LYMPHOCYTES ABSOLUTE MAN 0.72 K/mm3 (0.84-5.20); LYMPHOCYTES PERCENT MAN 6 % (21-46); MONOCYTES PERCENT MAN 5 % (4-13); NEUTROPHILS ABSOLUTE MAN 10.77 K/mm3 (1.96-9.15); SEG NEUTROPHILS PERCENT MAN 74 % (41-73); TOTAL CELLS COUNTED 100
--- NOTE | 2019-02-07 07:48 | NUR ---
ASSUMED CARE ASSUMED CARE OF PT AT 0700, REPORT RECEIVED FROM ORLY HAAS. PT INTUBATED, VENT SETTINGS AC 14, TV 400, PEEP 8, FiO2 40%, ACTUAL RR 14. PUPILS FIXED, NO REFLEXES PRESENT. PT HAS CL TO LIJ WITH 1/2NS AT 100ML/HR, INSULIN GTT TITRATED TO 6 UNITS/HR, VASOPRESSIN AT 2.4 ML/HR, SYNTHROID AT 25 ML/HR. PT RECEIVING IV KCL REPLACEMENT AT THIS TIME. MONITOR SHOWS SINUS RHYTHM WITH HR 80-90'S. PT HAS ARTERIAL LINE TO R FEMORAL ARTERY, WAVE FORM WNL ON MONITOR, SITE STABLE WITH NO BLEEDING OR HEMATOMA FORMATION. PT HAS ARTERIAL AND VENOUS SHEATHS IN PLACE TO LEFT GROIN FROM FUDGER PROCEDURE YESTERDAY AFTERNOON - SITES STABLE, NO BLEEDING OR HEMATOMA NOTED. PT HAS OG TO LOW INT WALL SUCTION WITH DARK GREEN LIQUID RETURN. TEMP PANDYA CATH IN PLACE DRAINING CLEAR YELLOW URINE TO GRAVITY WITH HOURLY OUTPUT MONITORING. TEMP READING 96.8 - DEANDRA HUGGER WARMING BLANKET IN PLACE. CARE OF PT UNDER MANAGEMENT OF PNTB TEAM AT THIS TIME. PLAN FOR PT TO GO TO O.R. AT 1200 TODAY.
--- NOTE | 2019-02-07 10:15 | NUR ---
SONA OFF AT THIS TIME. TEMP CURRENTLY 99.1
--- NOTE | 2019-02-07 10:28 | NUR ---
02/07/19 1028 Marla Hurt THIS IS A HARVEST CASE AND THE HARVEST TEAM PHYSICIANS ARE NOT IN [facility] AND DR. NOLAN IS THE CALL DOC SO I USED HIS NAME.
[2019-02-07 10:34] LABS: Anion Gap 10 mmol/L (6-16); Blood Urea Nitrogen 18 mg/dL (8-24); Bun/Creatinine Ratio 21.5 (12.0-20.0); CO2, Blood 27 mmol/L (21-32); Calcium, Blood 7.8 mg/dL (8.5-10.1); Chloride, Blood 96 mmol/L (98-108); Creatinine, Blood 0.84 mg/dL (0.40-1.00); Glomerular Filtration Rate >60 (60-); Glucose, Blood 149 mg/dL (70-99); Phosphorus, Blood 3.4 mg/dL (2.5-4.9); Potassium, Blood 3.6 mmol/L (3.5-5.5); Sodium, Blood 133 mmol/L (136-145)
[2019-02-07 11:18] LABS: Albumin/Globulin Ratio 0.9 (0.8-1.8); Bilirubin, Direct 0.5 mg/dL (0.0-0.3); Bilirubin, Indirect 0.5 mg/dL (0.1-0.7); Globulin, Blood 3.4 g/dL (2.2-4.0); Total Protein, Blood 6.4 g/dL (6.4-8.2)
--- NOTE | 2019-02-07 12:10 | NUR ---
TO O.R. PT TO O.R. WITH DR. MARTINEZ, MUSIC SPECIALIST'S, RESP. THERAPY, AND PNTB TEAM. ALL DRIPS CONTINUE TO INFUSE - SEE FLOWSHEET. VITAL SIGNS STABLE UPON TRANSFER.
== END 2019-02-07 23:29 | DRG 870 ==
LOC: ER 09:26 → ICUE 11:42 → ICUW 11:42 → ICUE 12:05 → ICUW 02-07 18:04
PROVIDERS: Emergency Medicine; Internal Medicine Critical Care Medicine; Internal Medicine Pulmonary Disease; ADMIT Family Medicine
PROC: 0BH17EZ Insertion of Endotracheal Airway into Trachea, Via Natural or Artificial Opening (ICD-10-PCS; principal; 2019-02-03)
PROC: 5A1955Z Respiratory Ventilation, Greater than 96 Consecutive Hours (ICD-10-PCS; 2019-02-03)
PROC: 3E033XZ Introduction of Vasopressor into Peripheral Vein, Percutaneous Approach (ICD-10-PCS; 2019-02-03)
PROC: 30233N1 Transfusion of Nonautologous Red Blood Cells into Peripheral Vein, Percutaneous Approach (ICD-10-PCS; 2019-02-03)
PROC: B24BZZZ Ultrasonography of Heart with Aorta (ICD-10-PCS; 2019-02-03)
PROC: 0BH17EZ Insertion of Endotracheal Airway into Trachea, Via Natural or Artificial Opening (ICD-10-PCS; 2019-02-03)
PROC: 02HV33Z Insertion of Infusion Device into Superior Vena Cava, Percutaneous Approach (ICD-10-PCS; 2019-02-03)
PROC: 4A023N8 Measurement of Cardiac Sampling and Pressure, Bilateral, Percutaneous Approach (ICD-10-PCS; 2019-02-06)
PROC: B211YZZ Fluoroscopy of Multiple Coronary Arteries using Other Contrast (ICD-10-PCS; 2019-02-06)
DX: A41.9 Sepsis, unspecified organism (principal); E11.11 Type 2 diabetes mellitus with ketoacidosis with coma; J69.0 Pneumonitis due to inhalation of food and vomit; R65.21 Severe sepsis with septic shock; J96.01 Acute respiratory failure with hypoxia; I21.4 Non-ST elevation (NSTEMI) myocardial infarction; G93.1 Anoxic brain damage, not elsewhere classified; N17.9 Acute kidney failure, unspecified; E87.1 Hypo-osmolality and hyponatremia; I46.9 Cardiac arrest, cause unspecified; E11.9 Type 2 diabetes mellitus without complications; Z79.4 Long term (current) use of insulin; E03.9 Hypothyroidism, unspecified; E78.5 Hyperlipidemia, unspecified; I10 Essential (primary) hypertension; E11.22 Type 2 diabetes mellitus with diabetic chronic kidney disease; I12.9 Hypertensive chronic kidney disease with stage 1 through stage 4 chronic kidney disease, or unspecified chronic kidney disease; N18.3 Chronic kidney disease, stage 3 (moderate); D63.1 Anemia in chronic kidney disease; E87.5 Hyperkalemia; E86.0 Dehydration
CPT/HCPCS: 31720; 36415; 36430; 36556; 36600; 36620; 51702; 70450; 71045; 71250; 74176; 76705; 80047; 80048; 80053; 80069; 80076; 81001; 82010; 82248; 82550; 82553; 82800; 82803; 82947; 83036; 83605; 83735; 84100; 84132; 84156; 84443; 84484; 85014; 85025; 85610; 85730; 86850; 86900; 86901; 86923; 87040; 87070; 87077; 87086; 87147; 87186; 87205; 92950; 93005; 93010; 93306; 93460; 94002; 94003; 94640; 96365-59; 96375-59; 99291-25; 99292; C1751; C1769; C9113; G0480; J0295; J0610; J0696; J1644; J1650; J1815; J1940; J2250; J2543; J2930; J3010; J3370; J3475; J3480; J7030; J7040; J7042; J7060; P9016; P9046; Q9967

== ENCOUNTER 2019-02-04 14:24 | Inpatient (IN) | payer OTHER ==
[~2019-02-04 14:24] MED LIST changes: +CARV6.25 PO; +VENL150ER PO; +ZOLP5 PO
== END 2019-02-07 13:58 | DRG 871 ==
LOC: SURS 14:24 → ORSCMMR 02-05 10:08 → SURS 02-06 10:35 → EDSTATUS 02-06 13:14 → ORSCMMR 02-06 13:15 → EDSTATUS 02-06 14:17 → SURS 02-07 13:58
PROVIDERS: ADMIT Family Medicine
DX: A41.9 Sepsis, unspecified organism (principal); E11.11 Type 2 diabetes mellitus with ketoacidosis with coma; J69.0 Pneumonitis due to inhalation of food and vomit; R65.21 Severe sepsis with septic shock; J96.01 Acute respiratory failure with hypoxia; I21.4 Non-ST elevation (NSTEMI) myocardial infarction; G93.1 Anoxic brain damage, not elsewhere classified; N17.9 Acute kidney failure, unspecified; E87.1 Hypo-osmolality and hyponatremia; I46.9 Cardiac arrest, cause unspecified; E11.9 Type 2 diabetes mellitus without complications; Z79.4 Long term (current) use of insulin; E03.9 Hypothyroidism, unspecified; E78.5 Hyperlipidemia, unspecified; I12.9 Hypertensive chronic kidney disease with stage 1 through stage 4 chronic kidney disease, or unspecified chronic kidney disease; N18.3 Chronic kidney disease, stage 3 (moderate); D63.1 Anemia in chronic kidney disease; E87.5 Hyperkalemia; E86.0 Dehydration; Z52.89 Donor of other specified organs or tissues
CPT/HCPCS: 31720; 36415; 36430; 36600; 36620; 71045; 71250; 74176; 80048; 80053; 80069; 80076; 81001; 82248; 82550; 82553; 82803; 82947; 83036; 83735; 84100; 84132; 84156; 84484; 85025; 85610; 85730; 86850; 86900; 86901; 86923; 87040; 87070; 87077; 87086; 87186; 87205; 93005; 93010; 93306; 93460; 94003; 94640; C1751; C1769; C9113; J0295; J0610; J1644; J1650; J1815; J1940; J2543; J2930; J3010; J3370; J3475; J3480; J7030; J7040; J7060; P9016; P9046; Q9967